=== PATIENT | female | born 1940 | race Caucasian/White ===

== ENCOUNTER 2021-07-06 14:58 | Inpatient (IN) | payer OTHER, MEDICAID, SELFPAY ==
[~2021-07-06] VITALS: Ht 165.1 cm; Wt 81.2 kg
[2021-07-06 15:00] VITALS: BP_SYST 147
[2021-07-06] MEDS ORDERED: LEVO150T PO (15:30)
[2021-07-06] MEDS ORDERED: BACL20TA PO (15:30)
[2021-07-06 15:49] LABS: ANION GAP -4 (5-15); CALCIUM 7.9 mg/dL (8.4-11.0); CHLORIDE 94 mmol/L (98-107); GLUCOSE 132 mg/dL (70-99); POTASSIUM 4.5 mmol/L (3.5-5.1); SODIUM SERUM 126 mmol/L (136-145); UREA NITROGEN, BLOOD 10 mg/dL (8-21)
[2021-07-06 16:04] LABS: ALANINE AMINOTRANSFERASE 14 U/L (12-78); ALBUMIN 2.5 g/dL (3.4-4.8); ASPARTATE AMINOTRANSFERASE 16 U/L (10-37); TOTAL BILIRUBIN 0.5 mg/dL (0.0-1.0)
[2021-07-06 16:22] LABS: BASOPHILS # (AUTO) 0.1 K/uL (0.0-0.2); EOSINOPHILS % (AUTO) 0.1 % (0.0-4.0); HEMATOCRIT 46.1 % (36-48); HEMOGLOBIN 14.3 g/dL (12.0-16.0); LYMPHOCYTES # (AUTO) 0.6 K/uL (1.0-5.5); LYMPHOCYTES % (AUTO) 9.9 % (20.5-51.5); MEAN CORPUSCULAR HEMOGLOBIN 26 pg (27-31); MEAN CORPUSCULAR HGB CONC 31 % (32-36); MEAN CORPUSCULAR VOLUME 84 fL (79.0-98.0); MONOCYTES # (AUTO) 0.5 K/uL (0.0-1.0); MONOCYTES % (AUTO) 7.8 % (1.7-9.3); NEUTROPHILS # (AUTO) 4.9 K/uL (1.8-7.7); NEUTROPHILS % (AUTO) 81.2 % (40.0-70.0); PLATELET COUNT (AUTO) 187 K/uL (130-430); RED BLOOD CELL COUNT(AUTO) 5.51 MIL/uL (4.2-6.2); RED CELL DISTRIBUTION WIDTH 16.6 % (9.0-15.0)
[2021-07-06] MEDS ORDERED: NACL 0.9% 1,750 ML IV ONE (16:30)
[2021-07-06 16:41] LABS: INR 1.2 (0.8-1.2)
[2021-07-06 17:01] LABS: BILIRUBIN,URINE NEGATIVE (NEGATIVE); BLOOD, URINE NEGATIVE (NEGATIVE); COLOR,URINE YELLOW (YELLOW); GLUCOSE,URINE NEGATIVE (NEGATIVE); KETONES,URINE NEGATIVE (NEGATIVE); LEUKOCYTE ESTERASE ,URINE NEGATIVE (NEGATIVE); NITRITE, URINE NEGATIVE (NEGATIVE); PROTEIN URINE TRACE (NEGATIVE); UROBILINOGEN,URINE 0.2 (0.2-1.0)
[2021-07-06 17:23] LABS: CLARITY/URINE SLIGHTLY HAZY (CLEAR)
[2021-07-06 17:44] LABS: BACTERIA,URINE FEW /HPF (None Seen); FINE GRANULAR CASTS,URINE 0-10 /LPF (None Seen); RBC,URINE NONE SEEN /HPF (0-3)
[2021-07-06 17:45] LABS: MUCUS,URINE 1+ /LPF (None Seen); OTHER CASTS, URINE WBC CASTS 1+ /LPF (None Seen)
[2021-07-06] MEDS ORDERED: IOHEXOL 350 mgI/mL, 150 ML INFUS..BTL IV ONE (17:57)
[2021-07-06] MEDS ORDERED: FUROSEMIDE 20 MG/2 ML VIAL IVP ONE (19:00)
[2021-07-06] MEDS ORDERED: IPRATROPIUM/ALBUTEROL SULFATE 3 ML AMPUL.NEB (DUONEB) INH ONE (19:00)
[2021-07-06] MEDS ORDERED: metroNIDAZOLE 500 mg/NS 100 ML IV ONE (19:00)
[2021-07-06] MEDS ORDERED: ENOXAPARIN SODIUM 80 MG/0.8 ML SYRINGE SUBCUT SCH (21:00)
[2021-07-06] MEDS ORDERED: ENOXAPARIN SODIUM 40 MG/0.4 ML SYRINGE SUBCUT SCH (21:00)
[2021-07-06] MEDS: BACLOFEN 10 MG TABLET PO SCH (21:00)
[2021-07-06] MEDS ORDERED: FUROSEMIDE 20 MG/2 ML VIAL ONE (21:16)
[2021-07-06 22:13] VITALS: BP_SYST 97
[2021-07-06 22:38] VITALS: BP_SYST 121
[2021-07-07] VITALS: BP_SYST 110
[2021-07-07] MEDS: LEVOTHYROXINE SODIUM 0.15 MG TABLET PO SCH ×2 (06:06→08:00)
[2021-07-07 08:26] VITALS: BP_SYST 122
[2021-07-07] MEDS: BACLOFEN 10 MG TABLET PO SCH ×3 (09:59→21:51)
[2021-07-07] MEDS: FUROSEMIDE 20 MG TABLET PO SCH (09:59)
[2021-07-07] MEDS: ENOXAPARIN SODIUM 40 MG/0.4 ML SYRINGE SUBCUT SCH ×2 (10:03→21:54)
[2021-07-07] MEDS: LEVOFLOXACIN IN DEXTROSE 5 % 100 ML IV SCH (11:01)
[2021-07-07 12:00] VITALS: BP_SYST 115
[2021-07-07] MEDS ORDERED: DOXYCYCLINE HYCLATE 100 MG CAPSULE PO ONE (12:00)
[2021-07-07 16:35] VITALS: BP_SYST 118
[2021-07-07] MEDS: DOXYCYCLINE HYCLATE 100 MG CAPSULE PO SCH (21:52)
[2021-07-08 00:28] VITALS: BP_SYST 126
[2021-07-08 06:05] LABS: HEMATOCRIT 42.6 % (36-48); HEMOGLOBIN 13.2 g/dL (12.0-16.0); LYMPHOCYTES # (AUTO) 0.6 K/uL (1.0-5.5); LYMPHOCYTES % (AUTO) 11.7 % (20.5-51.5); MEAN CORPUSCULAR HEMOGLOBIN 26 pg (27-31); MEAN CORPUSCULAR HGB CONC 31 % (32-36); MEAN CORPUSCULAR VOLUME 83 fL (79.0-98.0); MONOCYTES # (AUTO) 0.3 K/uL (0.0-1.0); MONOCYTES % (AUTO) 7.3 % (1.7-9.3); NEUTROPHILS # (AUTO) 3.7 K/uL (1.8-7.7); NEUTROPHILS % (AUTO) 79.3 % (40.0-70.0); PLATELET COUNT (AUTO) 150 K/uL (130-430); RED BLOOD CELL COUNT(AUTO) 5.16 MIL/uL (4.2-6.2); RED CELL DISTRIBUTION WIDTH 16.5 % (9.0-15.0); WHITE BLOOD COUNT (AUTO) 4.7 K/uL (4.8-10.8)
[2021-07-08] MEDS: LEVOTHYROXINE SODIUM 0.15 MG TABLET PO SCH (06:40)
[2021-07-08 07:19] LABS: ALANINE AMINOTRANSFERASE 9 U/L (12-78); ALBUMIN 2.1 g/dL (3.4-4.8); ANION GAP 3 (5-15); ASPARTATE AMINOTRANSFERASE 12 U/L (10-37); CALCIUM 7.7 mg/dL (8.4-11.0); CHLORIDE 97 mmol/L (98-107); CHOLESTEROL 123 mg/dL (<200); CREATININE 0.48 mg/dL (0.55-1.30); GLUCOSE 83 mg/dL (70-99); HDL CHOLESTEROL 47 mg/dL (>55); LDL CHOLESTEROL 69 mg/dL (<100); POTASSIUM 3.8 mmol/L (3.5-5.1); SODIUM SERUM 136 mmol/L (136-145); TOTAL BILIRUBIN 0.5 mg/dL (0.0-1.0); TRIGLYCERIDES 49 mg/dL (30-150); UREA NITROGEN, BLOOD 10 mg/dL (8-21)
[2021-07-08 08:00] VITALS: BP_SYST 96
[2021-07-08 08:23] LABS: BASOPHILS % (AUTO) 0.5 % (0.0-2.0)
[2021-07-08 08:24] LABS: EOSINOPHILS # (AUTO) 0.1 K/uL (0.0-0.4); EOSINOPHILS % (AUTO) 1.2 % (0.0-4.0)
[2021-07-08] MEDS: DOXYCYCLINE HYCLATE 100 MG CAPSULE PO SCH ×2 (09:46→20:06)
[2021-07-08] MEDS: BACLOFEN 10 MG TABLET PO SCH ×3 (09:46→20:06)
[2021-07-08] MEDS: FUROSEMIDE 20 MG TABLET PO SCH (09:47)
[2021-07-08] MEDS: ENOXAPARIN SODIUM 40 MG/0.4 ML SYRINGE SUBCUT SCH ×2 (09:50→20:08)
[2021-07-08] MEDS: LEVOFLOXACIN IN DEXTROSE 5 % 100 ML IV SCH (10:07)
[2021-07-08] MEDS ORDERED: FURO-150 PO (10:46)
[2021-07-08] MEDS ORDERED: DOXY100C5 PO (10:46)
[2021-07-08 12:00] VITALS: BP_SYST 103
[2021-07-08 16:00] VITALS: BP_SYST 98
[2021-07-08 22:35] VITALS: BP_SYST 97
== END 2021-07-08 23:00 | DRG 189 ==
LOC: SED 14:58 → STU 18:31
PROVIDERS: ADMIT Internal Medicine; ATTEND Internal Medicine
DX: J96.01 Acute respiratory failure with hypoxia (principal); J18.9 Pneumonia, unspecified organism; I50.41 Acute combined systolic (congestive) and diastolic (congestive) heart failure; E43 Unspecified severe protein-calorie malnutrition; G82.50 Quadriplegia, unspecified; E03.9 Hypothyroidism, unspecified; G35 Multiple sclerosis; Z20.822 Contact with and (suspected) exposure to COVID-19; Z74.01 Bed confinement status; Z87.440 Personal history of urinary (tract) infections; Z87.891 Personal history of nicotine dependence; Z90.710 Acquired absence of both cervix and uterus; Z88.0 Allergy status to penicillin; Z88.2 Allergy status to sulfonamides; Z91.040 Latex allergy status; Z79.899 Other long term (current) drug therapy; I69.398 Other sequelae of cerebral infarction; Z68.29 Body mass index [BMI] 29.0-29.9, adult
CPT/HCPCS: 36415; 71045; 71275; 76376; 80053; 80061; 81000; 83605; 83735; 83880; 84484; 85025; 85379; 85610-TC; 85730-TC; 87040; 87081; 87086; 92610-GN; 93005; 93306; 93970; 94760; 96365; 96366; 99285; G0378; J1650; J1940; J1956; J3490; Q9967